=== PATIENT | male | born 1950 | race Caucasian/White ===

== ENCOUNTER 2018-02-21 23:10 | Observation (INO) | payer MEDICARE, OTHER ==
[~2018-02-21] VITALS: Ht 180.3 cm; Wt 93.6 kg
[~2018-02-21 23:10] MED LIST: HYDR1TAB8 OP; MPR22T TP; SULF1TAB35 PO
--- NOTE | 2018-02-21 23:24 | ED Chest Pain ---
General Chief Complaint: Chest Pain Stated Complaint: SHOULDER PAIN Source: patient Exam Limitations: no limitations History of Present Illness Date Seen by Provider: Feb 21, 2018 Time Seen by Provider: 23:13 Initial Comments Patient resists ER by private conveyance with his significant other with left shoulder pain that started yesterday but today he is getting progressively worse and now all moving up into his left jaw as well as down his left arm. He has no prior coronary artery disease nor does he have any history of trauma. He is having no swelling in his shoulder. He has no shortness of breath or cough. He does not have hypothyroidism and quit smoking 10 years ago. He does have high blood pressure and hypercholesterolemia. He is not diabetic. He is not having any acid reflux. No pain elsewhere in his pain is not reproducible on palpation of his chest. He denies nausea or vomiting. Allergies and Home Medications Allergies Coded Allergies: No Known Drug Allergies (Unverified , 02/21/18) Home Medications Hydrocodone Bit/Ibuprofen 1 Each Tablet, 1 EACH OP Q 4 - 6 HRS PRN FOR PAIN Prescribed by: SERVANDO BARRERA on 01/27/10 1632 Mupirocin 22 Gm Tube, 0 TP TID APPLY TO SPARINGLY TO AFFECTED AREA(S) Prescribed by: SERVANDO BARRERA on 01/27/10 163 Sulfamethoxazole/Trimethoprim 1 Each Tablet, 1 EACH PO BID FOR INFECTION Prescribed by: SERVANDO BARRERA on 01/27/10 1632 Patient Home Medication List Home Medication List Reviewed: Yes Review of Systems Constitutional: No chills, No diaphoresis, No fever, No malaise EENTM: No Blurred Vision, No Double Vision Respiratory: Denies Cough, Denies Shortness of Air Cardiovascular: Denies Chest Pain, Denies Edema Gastrointestinal: Denies Constipated, Denies Diarrhea, Denies Nausea, Denies Vomiting Genitourinary: Denies Discharge, Denies Drainage; Other (blood in semen) Musculoskeletal: No back pain; joint pain (left shoulder) Skin: No pruritus, No rash Psychiatric/Neurological: Denies Headache, Denies Numbness, Denies Paresthesia Past Mvalsqx-Emuzsu-Bjgnab Hx Patient Social History Smoking Status: Former Smoker (quit 10 years ago) Physical Exam Vital Signs Vital Signs - First Documented 02/21/18 23:10 Pulse 65 Resp 14 B/P (MAP) 127/87 (100) Pulse Ox 100 O2 Delivery Room Air Capillary Refill : General Appearance: WD/WN, Anxious, Mild Distress HEENT: PERRL/EOMI, Normal ENT Inspection, Pharynx Normal Neck: Full Range of Motion, Non Tender, Supple Respiratory: Chest Non Tender, Lungs Clear, Normal Breath Sounds, No Accessory Muscle Use, No Respiratory Distress Cardiovascular: Regular Rate, Rhythm, No Edema, Normal Peripheral Pulses Gastrointestinal: Normal Bowel Sounds, No Organomegaly, Non Tender, Soft Extremity: Normal Capillary Refill, No Pedal Edema, Other (left shoulder tender to palpation without crepitus and limited range of motion secondary to pain of abduction and flexion.) Neurologic/Psychiatric: Alert, Oriented x3, No Motor/Sensory Deficits Skin: Normal Color, Warm/Dry Progress/Results/Core Measures Lab Results Laboratory Tests Test 02/21/18 23:20 02/22/18 00:01 02/22/18 00:40 Range/Units White Blood Count 17.7 H 4.3-11.0 10^3/uL Red Blood Count 4.84 4.35-5.85 10^6/uL Hemoglobin 15.4 13.3-17.7 G/DL Hematocrit 43 40-54 % Mean Corpuscular Volume 89 80-99 FL Mean Corpuscular Hemoglobin 32 25-34 PG Mean Corpuscular Hemoglobin Concent 36 32-36 G/DL Red Cell Distribution Width 12.3 10.0-14.5 % Platelet Count 239 130-400 10^3/uL Mean Platelet Volume 10.3 7.4-10.4 FL Neutrophils (%) (Auto) 80 H 42-75 % Lymphocytes (%) (Auto) 10 L 12-44 % Monocytes (%) (Auto) 10 0-12 % Eosinophils (%) (Auto) 0 0-10 % Basophils (%) (Auto) 0 0-10 % Neutrophils # (Auto) 14.2 H 1.8-7.8 X 10^3 Lymphocytes # (Auto) 1.8 1.0-4.0 X 10^3 Monocytes # (Auto) 1.7 H 0.0-1.0 X 10^3 Eosinophils # (Auto) 0.1 0.0-0.3 10^3/uL Basophils # (Auto) 0.1 0.0-0.1 10^3/uL Neutrophils % (Manual) 84 % Lymphocytes % (Manual) 3 % Monocytes % (Manual) 8 % Eosinophils % (Manual) 0 % Basophils % (Manual) 0 % Band Neutrophils 1 % Reactive Lymphocytes 4 % Blood Morphology Comment NORMAL Erythrocyte Sedimentation Rate 4 0-30 MM/HR Prothrombin Time 13.3 12.2-14.7 SEC INR Comment 1.0 0.8-1.4 Activated Partial Thromboplast Time 25 24-35 SEC Sodium Level 132 L 135-145 MMOL/L Potassium Level 3.5 L 3.6-5.0 MMOL/L Chloride Level 100 98-107 MMOL/L Carbon Dioxide Level 19 L 21-32 MMOL/L Anion Gap 13 5-14 MMOL/L Blood Urea Nitrogen 26 H 7-18 MG/DL Creatinine 1.12 0.60-1.30 MG/DL Estimat Glomerular Filtration Rate > 60 BUN/Creatinine Ratio 23 Glucose Level 95 70-105 MG/DL Calcium Level 9.7 8.5-10.1 MG/DL Magnesium Level 2.5 H 1.8-2.4 MG/DL Total Bilirubin 0.9 0.1-1.0 MG/DL Aspartate Amino Transf (AST/SGOT) 24 5-34 U/L Alanine Aminotransferase (ALT/SGPT) 26 0-55 U/L Alkaline Phosphatase 37 L 40-136 U/L Total Creatine Kinase 120 30-200 U/L Myoglobin 57.2 10.0-92.0 NG/ML Troponin I < 0.30 <0.30 NG/ML C-Reactive Protein High Sensitivity 0.87 H 0.00-0.50 MG/DL Total Protein 6.3 L 6.4-8.2 GM/DL Albumin 4.1 3.2-4.5 GM/DL Urine Color YELLOW Urine Clarity CLEAR Urine pH 7 5-9 Urine Specific [place] 1.010 L 1.016-1.022 Urine Protein 1+ H NEGATIVE Urine Glucose (UA) NEGATIVE NEGATIVE Urine Ketones 1+ H NEGATIVE Urine Nitrite NEGATIVE NEGATIVE Urine Bilirubin NEGATIVE NEGATIVE Urine Urobilinogen NORMAL NORMAL MG/DL Urine Leukocyte Esterase NEGATIVE NEGATIVE Urine RBC (Auto) 1+ H NEGATIVE Urine RBC RARE /HPF Urine WBC RARE /HPF Urine Squamous Epithelial Cells RARE /HPF Urine Crystals PRESENT H /LPF Urine Amorphous Sediment FEW AKILAH PHOSPHATE H /LPF Urine Bacteria NEGATIVE /HPF Urine Casts PRESENT /LPF Urine Hyaline Casts RARE /LPF Urine Mucus SMALL H /LPF Urine Culture Indicated NO My Orders Orders - YULIANA CUEVA Cbc With Automated Diff (02/21/18 23:18) Magnesium (02/21/18 23:18) Chest 1 View, Ap/Pa Only (02/21/18 23:18) Ekg Tracing (02/21/18 23:18) Cardiac Profile 1 (02/21/18 23:18) Comprehensive Metabolic Panel (02/21/18 23:18) Myoglobin Serum (02/21/18 23:18) Protime With Inr (02/21/18 23:18) Partial Thromboplastin Time (02/21/18 23:18) O2 (02/21/18:18) Monitor-Rhythm Ecg Trace Only (02/21/18:18) Lipid Panel (02/22/18 06:00) Aspirin Chewable Tablet (Baby Aspirin Ch (02/21/18 23:30) Nitroglycerin 0.4 Mg Btl 25's (Nitrostat (02/21/18 23:30) Saline Lock/Iv-Start (02/21/18 23:18) Manual Differential (02/21/18 23:20) Morphine Injection (Morphine Injection (02/21/18 23:45) Morphine Injection (Morphine Injection (02/21/18 23:40) Magnesium (02/21/18 23:58) Creatine Kinase (02/21/18 23:58) Shoulder, Left, 3 Views (02/22/18 00:44) Hs C Reactive Protein (02/22/18 00:44) Erythrocyte Sedimentation Rate (02/22/18 00:44) Neis Alec Dna Urine Test (02/22/18 00:44) Ua Culture If Indicated (02/22/18 00:44) Chlamydia Dna Urine Test (02/22/18 00:44) Medications Given in ED Current Medications Medications Dose Ordered Sig/Melquiades Route Start Time Stop Time Status Last Admin Dose Admin Aspirin 324 mg ONCE ONCE PO 02/21/18 23:30 02/21/18 23:31 DC 02/21/18 23:20 324 MG Morphine Sulfate 4 mg ONCE ONCE IVP 02/21/18 23:45 02/21/18 23:46 DC 02/21/18 23:50 4 MG Nitroglycerin 0.4 mg UD PRN SL 02/21/18 23:30 02/21/18 23:22 0.4 MG Vital Signs/I&O 02/21/18 23:10 Pulse 65 Resp 14 B/P (MAP) 127/87 (100) Pulse Ox 100 O2 Delivery Room Air Progress Note : Time: 00:46 Progress Note Reexamination of the patient's shoulder shows a joint that is painful to extension, flexion and abduction. He has no erythema or swelling but is tender without crepitus around the glenohumeral joint. He also tells me that 3 weeks ago he had started noticing blood in his semen with nonpainful ejaculation and no dysuria. He's had no fevers or chills. This combined with his white count and history of being on Plaquenil for rheumatoid arthritis we will check a GC, chlamydia, left shoulder x-ray. He has an appointment this week with urology. He says his primary care doctor checked his PSA which was 0.8 which is increased from 0.6 just 6 months ago. Initial ECG Impression Date: Feb 21, 2018 Initial ECG Impression Time: 23:14 Initial ECG Rate: 62 Initial ECG Rhythm: Normal Sinus Initial ECG Intervals: Normal Initial ECG Impression: Normal Initial ECG Comparisson: No Previous ECG Available Comment No acute ST elevation or depression. Some respiratory artifact. EKG : EKG Time: 23:46 Rate: 63 Rhythm: Normal Sinus Intervals: Normal ECG Comparisson: Unchanged ECG Impression: Normal, Nonspecific Changes Comment No ST elevation or depression. Right-sided EKG Diagonstic Imaging: Xray Plain Films/CT/US/NM/MRI: chest (1v) Comments No acute cardiopulmonary processes noted. Reviewed: Reviewed by Me Departure Communication (Admissions) Time/Spoke to Admitting Phy: 01:38 Discussed case lab imaging EKG and findings with Dr. Isabel. Discussed the shoulder exam and she agrees with holding off antibiotics at this time despite white cell count since there is no tachycardia fever. She will reexamine the patient in the morning and see if orthopedics needs to drain the bursa or do any other evaluation. She agrees with a cardiac workup. Time/Spoke to Consulting Phy: 23:52 Discussed the case lab EKG and findings with Dr. Brooks. He reviewed an EKG and agrees there is no ST changes. He says the pain may have caused a vasovagal syncope causing the bradycardia. He recommends IV fluids to control the blood pressure and her blood pressure improves but the pain continues can use Nitropaste 1 inch topically. Impression Primary Impression: Left shoulder pain Qualified Codes: M25.512 - Pain in left shoulder Additional Impressions: Atypical angina Leukocytosis Qualified Codes: D72.829 - Elevated white blood cell count, unspecified Long-term use of Plaquenil Disposition: 09 ADMITTED INPATIENT Condition: Stable Admissions Decision to Admit Reason: Admit from ER (General) Decision to Admit/Date: Feb 22, 2018 Time/Decision to Admit Time: 01:46 Departure-Patient Inst. Referrals: NO,LOCAL PHYSICIAN (PCP) Primary Care Physician SERVANDO BARRERA DO (Family) Primary Care Physician YULIANA CUEVA Feb 21, 2018 23:24
[2018-02-21] MEDS ORDERED: LATA2.5D5 (23:25)
[2018-02-21] MEDS ORDERED: SIMV20TA3 (23:25)
[2018-02-21] MEDS ORDERED: TRIA1TAB5 (23:25)
[2018-02-21] MEDS ORDERED: LISI10TA2 (23:25)
[2018-02-21] MEDS ORDERED: ASPIRIN 81 MG CHEW (CHILDREN'S ASA) PO ONE (23:30)
[2018-02-21] MEDS ORDERED: NITROGLYCERIN 0.4 MG SL TABS BTL 25'S SL PRN (23:30)
[2018-02-21 23:33] LABS: BASOPHILS # (AUTO) 0.1 10^3/uL (0.0-0.1); BASOPHILS % (AUTO) 0 % (0-10); EOSINOPHILS # (AUTO) 0.1 10^3/uL (0.0-0.3); EOSINOPHILS % (AUTO) 0 % (0-10); HEMATOCRIT 43 % (40-54); HEMOGLOBIN 15.4 G/DL (13.3-17.7); LYMPHOCYTES # (AUTO) 1.8 X 10^3 (1.0-4.0); LYMPHOCYTES % (AUTO) 10 % (12-44); MEAN CORPUSCULAR HEMOGLOBIN 32 PG (25-34); MEAN CORPUSCULAR HGB CONC 36 G/DL (32-36); MEAN CORPUSCULAR VOLUME 89 FL (80-99); MEAN PLATELET VOLUME 10.3 FL (7.4-10.4); MONOCYTES # (AUTO) 1.7 X 10^3 (0.0-1.0); MONOCYTES % (AUTO) 10 % (0-12); NEUTROPHILS # (AUTO) 14.2 X 10^3 (1.8-7.8); NEUTROPHILS % (AUTO) 80 % (42-75); PLATELET COUNT 239 10^3/uL (130-400); RED BLOOD COUNT 4.84 10^6/uL (4.35-5.85); RED CELL DISTRIBUTION WIDTH 12.3 % (10.0-14.5); WHITE BLOOD COUNT 17.7 10^3/uL (4.3-11.0)
[2018-02-21 23:38] LABS: PROTHROMBIN TIME PATIENT 13.3 SEC (12.2-14.7)
[2018-02-21] MEDS ORDERED: morphine INJ 10 MG/ML 1ML (SYR OR VIAL) ONE (23:40)
[2018-02-21] MEDS ORDERED: morphine INJ 10 MG/ML 1ML (SYR OR VIAL) IVP ONE (23:45)
[2018-02-21 23:47] LABS: ALANINE AMINOTRANSFERASE 26 U/L (0-55); ALBUMIN 4.1 GM/DL (3.2-4.5); ALKALINE PHOSPHATASE 37 U/L (40-136); BILIRUBIN,TOTAL 0.9 MG/DL (0.1-1.0); BUN/CREATININE RATIO 23; CALCIUM 9.7 MG/DL (8.5-10.1); CARBON DIOXIDE 19 MMOL/L (21-32); CHLORIDE 100 MMOL/L (98-107); CREATININE SERUM 1.12 MG/DL (0.60-1.30); GFR ESTIMATED > 60; GLUCOSE 95 MG/DL (70-105); MAGNESIUM 2.1 MG/DL (1.8-2.4); POTASSIUM 3.5 MMOL/L (3.6-5.0); SODIUM 132 MMOL/L (135-145); TOTAL PROTEIN 6.3 GM/DL (6.4-8.2)
[2018-02-21 23:52] LABS: BAND NEUTROPHILS 1 %; BASOPHILS % (MANUAL) 0 %; EOSINOPHILS % (MANUAL) 0 %; LYMPHOCYTES % (MANUAL) 3 %; MONOCYTES % (MANUAL) 8 %; NEUTROPHILS % (MANUAL) 84 %; RBC MORPH NORMAL; REACTIVE LYMPHOCYTES 4 %
[2018-02-21 23:53] LABS: MYOGLOBIN SERUM 57.2 NG/ML (10.0-92.0)
[2018-02-22 00:32] LABS: MAGNESIUM 2.5 MG/DL (1.8-2.4)
[2018-02-22 00:56] LABS: BILIRUBIN,URINE NEGATIVE (NEGATIVE); CLARITY,URINE CLEAR; COLOR,URINE YELLOW; GLUCOSE, URINE (UA) NEGATIVE (NEGATIVE); KETONES,URINE 1+ (NEGATIVE); LEUKOCYTE ESTERASE ,URINE NEGATIVE (NEGATIVE); NITRITE,URINE NEGATIVE (NEGATIVE); PH,URINE 7 (5-9); PROTEIN,URINE 1+ (NEGATIVE); UROBILINOGEN,URINE NORMAL (NORMAL)
[2018-02-22 01:01] LABS: AMORPHOUS SEDIMENT,UR FEW AMOR PHOSPHATE /LPF; BACTERIA,URINE NEGATIVE /HPF; HYALINE CASTS, URINE RARE /LPF; RBC,URINE RARE /HPF; SQUAMOUS EPITHELIAL CELL,UR RARE /HPF; WBC,URINE RARE /HPF
[2018-02-22] MEDS ORDERED: fentaNYL INJECTION 100 MCG/2 ML AMP IVP ONE (02:00)
[2018-02-22 02:21] VITALS: BP 107/64
[2018-02-22 02:30] VITALS: BP 99/62
[2018-02-22] MEDS ORDERED: NS W/KCL 20 MEQ/L 1,000 ML IV ONE (02:33)
[2018-02-22] MEDS: NS W/KCL 20 MEQ/L 1,000 ML IV SCH ×2 (02:59→08:54)
[2018-02-22] MEDS ORDERED: fentaNYL INJECTION 100 MCG/2 ML AMP IV PRN (03:00)
[2018-02-22] MEDS ORDERED: morphine INJ 4 MG/ML 1 ML (VIAL/SYRINGE) IV PRN (03:00)
[2018-02-22] MEDS ORDERED: NITROGLYCERIN 0.4 MG SL TABS BTL 25'S SL PRN (03:00)
[2018-02-22] MEDS ORDERED: ONDANSETRON 4 MG/2 ML (SDV) Z0FRAN IV PRN (03:00)
[2018-02-22 03:52] LABS: BASOPHILS % (AUTO) 0 % (0-10); EOSINOPHILS % (AUTO) 0 % (0-10); HEMATOCRIT 40 % (40-54); HEMOGLOBIN 14.3 G/DL (13.3-17.7); LYMPHOCYTES # (AUTO) 0.5 X 10^3 (1.0-4.0); LYMPHOCYTES % (AUTO) 3 % (12-44); MEAN CORPUSCULAR HEMOGLOBIN 32 PG (25-34); MEAN CORPUSCULAR HGB CONC 36 G/DL (32-36); MEAN CORPUSCULAR VOLUME 89 FL (80-99); MEAN PLATELET VOLUME 10.6 FL (7.4-10.4); MONOCYTES % (AUTO) 6 % (0-12); NEUTROPHILS # (AUTO) 15.2 X 10^3 (1.8-7.8); NEUTROPHILS % (AUTO) 91 % (42-75); PLATELET COUNT 182 10^3/uL (130-400); RED BLOOD COUNT 4.52 10^6/uL (4.35-5.85); RED CELL DISTRIBUTION WIDTH 12.1 % (10.0-14.5); WHITE BLOOD COUNT 16.8 10^3/uL (4.3-11.0)
[2018-02-22 04:00] VITALS: BP 99/59
[2018-02-22 04:17] LABS: CHOLESTEROL 127 MG/DL (< 200); HDL CHOLESTEROL 38 MG/DL (40-60); TRIGLYCERIDES 55 MG/DL (<150); VLDL CHOLESTEROL 11 MG/DL (5-40)
[2018-02-22 04:20] LABS: BUN/CREATININE RATIO 25; CALCIUM 8.5 MG/DL (8.5-10.1); CARBON DIOXIDE 20 MMOL/L (21-32); CHLORIDE 101 MMOL/L (98-107); CREATININE SERUM 0.96 MG/DL (0.60-1.30); GFR ESTIMATED > 60; GLUCOSE 111 MG/DL (70-105); POTASSIUM 3.5 MMOL/L (3.6-5.0); SODIUM 133 MMOL/L (135-145)
[2018-02-22] MEDS ORDERED: NS IV 1000 ML 1,000 ML IV SCH ×2 (04:30→04:45)
--- NOTE | 2018-02-22 07:00 | Diagnostic Imaging Report ---
Procedure: Portable erect AP chest at 11:29. Indication: Injury, short of breath. Findings: The heart size is within normal limits and stable when compared to 01/27/2010. There are a few crowded bronchovascular markings in the right infrahilar region but there is no evidence for failure, pneumonia or for pleural effusion. Mediastinum is not widened. The osseous structures are intact. External cardiac monitoring electrodes are noted. Impression: There is no evidence for an acute cardiopulmonary abnormality. Dictated by: Dictated on workstation # [id number]
--- NOTE | 2018-02-22 07:04 | Diagnostic Imaging Report ---
Procedure: Left shoulder at 1:15. Indication: Injury, arm pain Findings: Three views were obtained. There is no fracture, dislocation or acute bony abnormality evident. The shoulder joint is fairly well-maintained. The soft tissues are unremarkable. Impression: 1. There is no evidence for an acute bony abnormality. 2. If there is clinical concern regarding injury to the rotator cuff or labrum, MRI would be recommended for additional study. Dictated by: Dictated on workstation # [id number]
[2018-02-22 08:00] VITALS: BP 120/76
[2018-02-22] MEDS ORDERED: ASPIRIN E.C. 81 MG (ECOTRIN) TAB PO SCH (09:00)
[2018-02-22] MEDS ORDERED: methylPREDNISolone 125 MG (Solu-MEDROL) VIAL IM ONE (09:30)
--- NOTE | 2018-02-22 09:49 | Consultation-Cardiology ---
HPI-Cardiology Cardiology Consultation Date of Consultation 02/22/18 Date of Admission Time Seen by Provider: 09:48 Indication: Atypical chest pain HPI 68 years old gentleman with history of hypertension, rheumatoid arthritis, was in his usual state of health until couple of days ago when he started having left shoulder pain which was worsening, yesterday started having pain radiating to the left side of his neck and jaw. Came into the emergency room, currently feeling better still having significant shoulder pain reproducible by touching his left shoulder. Denied any previous cardiac history, denied any chest pain, no shortness of breath, no palpitation, syncope or near syncopal episode, noted to have mild leukocytosis. Home Medications & Allergies Allergies: Coded Allergies: No Known Drug Allergies (Unverified , 02/21/18) Home Medication List Reviewed: Yes YNV-Rbpzvs-Uirqnb Hx Patient Social History Marital Status: Employed/Student: employed Alcohol Use: Occasionally Uses Recreational Drug Use: No Smoking Status: Former Smoker Recent Foreign Travel: No Recent Infectious Disease Expo: No Recent Hopitalizations: No Physical Abuse Screen: No Sexual Abuse: No Past Medical History Past medical history discussed below Family Medical History Family Medical Hx Noncontributory to his current condition Constitutional: see HPI; No chills, No diaphoresis, No dizziness, No fever, No weakness, No weight gain, No weight loss, No other EENTM: see HPI, no symptoms reported Respiratory: see HPI; No cough, No dyspnea on exertion, No hemoptysis, No orthopnea, No phlegm, No short of breath, No stridor, No wheezing, No other Cardiovascular: see HPI; No chest pain, No edema, No Hx of Intervention, No palpitations, No syncope, No vascular heart diseas, No other Gastrointestinal: no symptoms reported, see HPI Genitourinary: no symptoms reported, see HPI Musculoskeletal: see HPI, joint pain (Left shoulder pain), muscle pain Skin: no symptoms reported, see HPI Psychiatric/Neurological: No Symptoms Reported, See HPI Reviewed Test Results Reviewed Test Results Lab Laboratory Tests Test 02/21/18 23:20 02/22/18 00:01 02/22/18 00:40 02/22/18 03:36 Range/Units White Blood Count 17.7 H 16.8 H 4.3-11.0 10^3/uL Red Blood Count 4.84 4.52 4.35-5.85 10^6/uL Hemoglobin 15.4 14.3 13.3-17.7 G/DL Hematocrit 43 40 40-54 % Mean Corpuscular Volume 89 89 80-99 FL Mean Corpuscular Hemoglobin 32 32 25-34 PG Mean Corpuscular Hemoglobin Concent 36 36 32-36 G/DL Red Cell Distribution Width 12.3 12.1 10.0-14.5 % Platelet Count 239 182 130-400 10^3/uL Mean Platelet Volume 10.3 10.6 H 7.4-10.4 FL Neutrophils (%) (Auto) 80 H 91 H 42-75 % Lymphocytes (%) (Auto) 10 L 3 L 12-44 % Monocytes (%) (Auto) 10 6 0-12 % Eosinophils (%) (Auto) 0 0 0-10 % Basophils (%) (Auto) 0 0 0-10 % Neutrophils # (Auto) 14.2 H 15.2 H 1.8-7.8 X 10^3 Lymphocytes # (Auto) 1.8 0.5 L 1.0-4.0 X 10^3 Monocytes # (Auto) 1.7 H 1.0 0.0-1.0 X 10^3 Eosinophils # (Auto) 0.1 0.0 0.0-0.3 10^3/uL Basophils # (Auto) 0.1 0.0 0.0-0.1 10^3/uL Neutrophils % (Manual) 84 % Lymphocytes % (Manual) 3 % Monocytes % (Manual) 8 % Eosinophils % (Manual) 0 % Basophils % (Manual) 0 % Band Neutrophils 1 % Reactive Lymphocytes 4 % Blood Morphology Comment NORMAL Erythrocyte Sedimentation Rate 4 0-30 MM/HR Prothrombin Time 13.3 12.2-14.7 SEC INR Comment 1.0 0.8-1.4 Activated Partial Thromboplast Time 25 24-35 SEC Sodium Level 132 L 133 L 135-145 MMOL/L Potassium Level 3.5 L 3.5 L 3.6-5.0 MMOL/L Chloride Level 100 101 98-107 MMOL/L Carbon Dioxide Level 19 L 20 L 21-32 MMOL/L Anion Gap 13 12 5-14 MMOL/L Blood Urea Nitrogen 26 H 24 H 7-18 MG/DL Creatinine 1.12 0.96 0.60-1.30 MG/DL Estimat Glomerular Filtration Rate > 60 > 60 BUN/Creatinine Ratio 23 25 Glucose Level 95 111 H 70-105 MG/DL Calcium Level 9.7 8.5 8.5-10.1 MG/DL Magnesium Level 2.5 H 1.8-2.4 MG/DL Total Bilirubin 0.9 0.1-1.0 MG/DL Aspartate Amino Transf (AST/SGOT) 24 5-34 U/L Alanine Aminotransferase (ALT/SGPT) 26 0-55 U/L Alkaline Phosphatase 37 L 40-136 U/L Total Creatine Kinase 120 30-200 U/L Myoglobin 57.2 10.0-92.0 NG/ML Troponin I < 0.30 <0.30 NG/ML C-Reactive Protein High Sensitivity 0.87 H 0.00-0.50 MG/DL Total Protein 6.3 L 6.4-8.2 GM/DL Albumin 4.1 3.2-4.5 GM/DL Urine Color YELLOW Urine Clarity CLEAR Urine pH 7 5-9 Urine Specific [place] 1.010 L 1.016-1.022 Urine Protein 1+ H NEGATIVE Urine Glucose (UA) NEGATIVE NEGATIVE Urine Ketones 1+ H NEGATIVE Urine Nitrite NEGATIVE NEGATIVE Urine Bilirubin NEGATIVE NEGATIVE Urine Urobilinogen NORMAL NORMAL MG/DL Urine Leukocyte Esterase NEGATIVE NEGATIVE Urine RBC (Auto) 1+ H NEGATIVE Urine RBC RARE /HPF Urine WBC RARE /HPF Urine Squamous Epithelial Cells RARE /HPF Urine Crystals PRESENT H /LPF Urine Amorphous Sediment FEW AKILAH PHOSPHATE H /LPF Urine Bacteria NEGATIVE /HPF Urine Casts PRESENT /LPF Urine Hyaline Casts RARE /LPF Urine Mucus SMALL H /LPF Urine Culture Indicated NO Uric Acid 7.1 2.6-7.2 MG/DL Triglycerides Level 55 <150 MG/DL Cholesterol Level 127 < 200 MG/DL LDL Cholesterol Direct 75 1-129 MG/DL VLDL Cholesterol 11 5-40 MG/DL HDL Cholesterol 38 L 40-60 MG/DL Physical Exam Vital Signs Vital Signs - First Documented 02/21/18 02/21/18 02/22/18 23:10 23:35 02:21 Temp 99.1 Pulse 65 Resp 14 B/P (MAP) 127/87 (100) Pulse Ox 100 O2 Delivery Room Air O2 Flow Rate 2.00 Capillary Refill : Less Than 3 Seconds General Appearance: No Apparent Distress, WD/WN Eyes: Bilateral Eye Normal Inspection, Bilateral Eye PERRL, Bilateral Eye EOMI HEENT: PERRL/EOMI, TMs Normal, Normal ENT Inspection, Pharynx Normal Neck: Full Range of Motion, Normal Inspection, Non Tender, Supple, Carotid Bruit Respiratory: Chest Non Tender, Lungs Clear, Normal Breath Sounds, No Accessory Muscle Use, No Respiratory Distress Cardiovascular: Regular Rate, Rhythm, No Edema, No Gallop, No JVD, No Murmur, Normal Peripheral Pulses Gastrointestinal: Normal Bowel Sounds, No Organomegaly, No Pulsatile Mass, Non Tender, Soft Back: Normal Inspection, No CVA Tenderness, No Vertebral Tenderness Extremity: Normal Capillary Refill, Normal Inspection, Normal Range of Motion, Non Tender, No Calf Tenderness, No Pedal Edema Neurologic/Psychiatric: Alert, Oriented x3, No Motor/Sensory Deficits, Normal Mood/Affect Skin: Normal Color, Warm/Dry Lymphatic: No Adenopathy A/P-Cardiology Admission Diagnosis Chest pain nonspecific etiology/ left shoulder. Leukocytosis Hypertension Rheumatoid arthritis Assessment/Plan Atypical chest pain, left shoulder pain, reproducible pain by palpating his left shoulder. No chest pain. No shortness of breath. His pain is musculoskeletal in nature. Patient has risk factors for coronary artery disease , need to have workup as an outpatient. Cardiac status at this time is considered stable. Hypertension, controlled on current medication, continue to monitor blood pressure as an outpatient Leukocytosis, probably reactive. Patient is taking simvastatin as an outpatient in despite normal cholesterol to reduce the risk for coronary artery disease. History of rheumatoid arthritis. From cardiology standpoint patient can be discharged and follow-up as an outpatient. Clinical Quality Measures AMI/AHF: ASA po Prior to arrival: No DVT/VTE Risk/Contraindication: Risk Factor Score Per Nursin RFS Level Per Nursing on Admit: 2=Moderate ALYSSA ROSENBERG MD Feb 22, 2018 09:49
--- NOTE | 2018-02-22 10:37 | History & Physical-Hospitalist ---
History of Present Illness HPI/Chief Complaint This is a 68-year-old white male with a history of rheumatoid arthritis. The patient presents to the emergency room after having increased left shoulder pain. The pain hurts with any kind of movement and he is unable to elevate his left arm. In addition today it started radiating up to his left jaw. He denied having any diaphoresis or shortness of breath associated with this. He said that this pain is similar to the flare of rheumatoid arthritis that he had , for which he had been started on Plaquenil in September of last year. He has no previous history of heart disease. He does relate a history of hypertension and takes a statin even though his cholesterol has been normal. He smoked in the distant past but hasn't for years. He is active in gardening and has not had any chest discomfort or limitations recently. Source: patient, family Exam Limitations: no limitations Date Seen 02/22/18 Time Seen by Provider: 09:00 Attending Physician Dior Hurtado MD PCP No,Local Physician Referring Physician Date of Admission Feb 22, 2018 at 01:45 Home Medications & Allergies Home Medications Reviewed patient Home Medication Reconciliation performed by pharmacy medication reconciliations equipment service technician and/or nursing. Patients Allergies have been reviewed. Allergies Allergies Coded Allergies No Known Drug Allergies (Unverified02/21/18) Past Gnvyzkz-Emdsfo-Dafcol Hx Past Med/Social Hx: Reviewed Nursing Past Med/Soc Hx Patient Social History Marrital Status: Employed/Student: employed Alcohol Use: Occasionally Uses Recreational Drug Use: No Smoking Status: Former Smoker Physical Abuse Screen: No Sexual Abuse: No Recent Foreign Travel: No Contact w/other who traveled: No Recent Hopitalizations: No Recent Infectious Disease Expo: No Immunizations Up To Date Pediatric: Yes Seasonal Allergies Seasonal Allergies: No Past Medical History Surgeries: Abdominal Cardiac: Hypertension Gastrointestinal: Abdominal Hernia, Gastroesophageal Reflux Musculoskeletal: Arthritis History of Blood Disorders: No Adverse Reaction to Blood [place]: No Review of Systems Constitutional: no symptoms reported EENTM: no symptoms reported Respiratory: no symptoms reported Cardiovascular: no symptoms reported Gastrointestinal: no symptoms reported Genitourinary: no symptoms reported Musculoskeletal: gout, joint pain, joint swelling, muscle weakness, neck pain Skin: no symptoms reported Psychiatric/Neurological: No Symptoms Reported Physical Exam Physical Exam Vital Signs Vital Signs - First Documented 02/21/18 02/21/18 02/22/18 23:10 23:35 02:21 Temp 99.1 Pulse 65 Resp 14 B/P (MAP) 127/87 (100) Pulse Ox 100 O2 Delivery Room Air O2 Flow Rate 2.00 Capillary Refill : Less Than 3 Seconds General Appearance: No Apparent Distress, WD/WN HEENT: PERRL/EOMI, TMs Normal, Normal ENT Inspection, Pharynx Normal Neck: Normal Inspection, Limited Range of Motion Respiratory: Chest Non Tender, Lungs Clear, Normal Breath Sounds, No Accessory Muscle Use, No Respiratory Distress Cardiovascular: Regular Rate, Rhythm, No Edema, No Gallop, No JVD, No Murmur, Normal Peripheral Pulses Gastrointestinal: Normal Bowel Sounds, No Organomegaly, No Pulsatile Mass, Non Tender, Soft Rectal: Deferred Back: Normal Inspection, No CVA Tenderness, No Vertebral Tenderness Extremity: Non Tender, No Calf Tenderness, Other (Pain with any palpation over the lateral deltoid bursa with increased heat and swelling in that area.) Neurologic/Psychiatric: Alert, Oriented x3, No Motor/Sensory Deficits, Normal Mood/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 Imaging: Reviewed Imaging Report Assessment/Plan Admission Diagnosis Left shoulder and jaw pain initially suspicious for cardiac etiology. Serial cardiac enzymes are negative and exam is most consistent with a flare of either gout or rheumatoid arthritis. Rheumatoid arthritis History of hypertension Leukocytosis without evidence of septic joint especially in light of the normal sedimentation rate Plan is for an IV dose of Solu-Medrol to see if this doesn't achieve pain control consideration should be given to following up with a premium representative or orthopedic surgeon for a steroid injection into this area. With the triceps weakness in consideration should be given to a radiculopathy Admission Status: Observation Diagnosis/Problems Diagnosis/Problems (1) Leukocytosis Status: Acute Qualifiers: Leukocytosis type: unspecified Qualified Codes: D72.829 - Elevated white blood cell count, unspecified (2) Left shoulder pain Status: Acute Qualifiers: Chronicity: acute Qualified Codes: M25.512 - Pain in left shoulder (3) Long-term use of Plaquenil Status: Acute (4) Rheumatoid arthritis flare Status: Acute (5) Hypertension Status: Chronic Qualifiers: Hypertension type: essential hypertension Qualified Codes: I10 - Essential (primary) hypertension Clinical Quality Measures AMI/AHF: ASA po Prior to arrival: No DVT/VTE Risk/Contraindication: Risk Factor Score Per Nursin RFS Level Per Nursing on Admit: 2=Moderate DIOR HURTADO MD Feb 22, 2018 10:37
[2018-02-22 12:00] VITALS: BP 119/75
[2018-02-22] MEDS ORDERED: IBUPROFEN 600 MG (MOTRIN) TAB PO SCH (12:00)
[2018-02-22] MEDS ORDERED: ASPI-983 PO (13:14)
[2018-02-22] MEDS ORDERED: medrol dose pack (13:14)
[2018-02-22] MEDS ORDERED: predniSONE 20 MG TAB PO ONE (13:15)
--- NOTE | 2018-02-22 13:23 | Discharge Summary-Hospitalist ---
Diagnosis/Chief Complaint Date of Admission Feb 22, 2018 at 1:45 am Date of Discharge february 22 Discharge Date: Feb 22, 2018 Discharge Time: 14:00 Admission Diagnosis Left shoulder and jaw pain initially suspicious for cardiac etiology. Serial cardiac enzymes are negative and exam is most consistent with a flare of either gout or rheumatoid arthritis. Rheumatoid arthritis History of hypertension Leukocytosis without evidence of septic joint especially in light of the normal sedimentation rate Plan is for an IV dose of Solu-Medrol to see if this doesn't achieve pain control consideration should be given to following up with a high pressure kettle operator or orthopedic surgeon for a steroid injection into this area. With the triceps weakness in consideration should be given to a radiculopathy Discharge Diagnosis Shoulder pain secondary to flair of RA Leukocytosis -reactive Gout HTN Hematospermia (1) Leukocytosis Status: Acute (2) Left shoulder pain Status: Acute (3) Long-term use of Plaquenil Status: Acute (4) Rheumatoid arthritis flare Status: Acute (5) Hypertension Status: Chronic (6) Hematospermia Status: Acute Discharge Summary Procedures/Consulations Dr. Brooks Discharge Physical Exam Allergies: Coded Allergies: No Known Drug Allergies (Unverified , 02/21/18) Vitals & I&Os Vital Signs Date Time Temp Pulse Resp B/P (MAP) Pulse Ox O2 Delivery O2 Flow Rate FiO2 02/22/18 17:25 02/22/18 13:00 57 02/22/18 12:00 98.6 Room Air 02/22/18 12:00 96 02/22/18 12:00 2.00 02/22/18 04:00 18 General Appearance: Alert, Oriented X3, Cooperative HEENT: Atraumatic, PERRLA Respiratory: Clear to Auscultation Cardiovascular: Regular Rate, Normal S1, Normal S2 Abdominal: Normal Bowel Sounds, Soft Extremities: No Clubbing, No Cyanosis, No Edema, Normal Pulses Skin: No Rashes, No Breakdown Neuro: Normal Gait, Normal Speech Psych/Mental Status: Mental Status NL Hospital Course Pt admitted and r/o for [place]. Low risk. Seen By DR. Brooks. Given 1 dose of Solumedrol with near resolution of left shoulder pain. Labs (last 24 hrs) Patient resulted labs reviewed. Imaging: Reviewed Imaging Report Discussion & Recommendations Discharge Planning: >30 minutes discharge planning PT has blood in semen and may have prostate problems contributing to increased WBC. GC/Chlamidia pending Discharge Home Medications: Active Scripts Active [medrol dose pack] Aspirin EC (Aspirin) 81 Mg Tablet.dr 81 Mg PO DAILY 90 Days Reported Simvastatin 20 Mg Tablet Lisinopril 10 Mg Tablet Latanoprost 2.5 Ml Drops Triamterene-Hctz 75-50 mg Tab (Triamterene/Hydrochlorothiazid) 1 Each Tablet Instructions to patient/family Please see electronic discharge instructions given to patient. Clinical Quality Measures Admission Status Admission Status: Observation AMI/AHF: ASA po Prior to arrival: No DVT/VTE Risk/Contraindication: VTE Addressed: Yes Risk Factor Score Per Nursin RFS Level Per Nursing on Admit: 2=Moderate Problem Qualifiers (1) Leukocytosis: Leukocytosis type: unspecified Qualified Codes: D72.829 - Elevated white blood cell count, unspecified (2) Left shoulder pain: Chronicity: acute Qualified Codes: M25.512 - Pain in left shoulder (3) Hypertension: Hypertension type: essential hypertension Qualified Codes: I10 - Essential ( primary) hypertension JENNIFFER HURTADO MD Feb 22, 2018 13:23
[2018-02-22] MEDS ORDERED: ATORVASTATIN 40 MG (LIPITOR) TABLET PO SCH (21:00)
== END 2018-02-22 13:06 | disposition home or self-care (01) ==
LOC: EDUNIT# 23:10 → ER 23:12 → ICU 23:13 → UNDOADMOB 02-22 01:45 → ICU 02-22 01:45 → UNDODISOB 02-22 15:00
PROVIDERS: ADMIT Internal Medicine; ATTEND Internal Medicine
DX: M06.9 Rheumatoid arthritis, unspecified (principal); M25.512 Pain in left shoulder; R07.89 Other chest pain; M10.9 Gout, unspecified; R36.1 Hematospermia; I10 Essential (primary) hypertension; E78.5 Hyperlipidemia, unspecified; K21.9 Gastro-esophageal reflux disease without esophagitis; D72.829 Elevated white blood cell count, unspecified; Z79.899 Other long term (current) drug therapy; Z87.891 Personal history of nicotine dependence
CPT/HCPCS: 36415; 71045; 73030; 80048; 80053; 80061; 81000; 82550; 83735; 83874; 84484; 84550; 85007; 85025; 85027; 85610; 85652; 85730; 86141; 87491; 87591; 93005; 93041; 96361; 96374; 96375